=== PATIENT | female | born 1965 | race Caucasian/White ===

== ENCOUNTER 2017-09-16 19:35 | Observation (INO) | payer OTHER ==
[2017-09-16 20:03] LABS: #Basophils 0.1 thou/uL (0.0-0.2); #Eosinphils 0.2 thou/uL (0.0-0.7); #Lymphocytes 2.6 thou/uL (1.20-3.40); #Monocytes 0.5 thou/uL (0.11-0.59); #Neutrophils 4.2 thou/uL (1.40-6.50); %Basophils 1.3 % (0.0-1.0); %Eosinophils 2.2 % (0.0-10.0); %Monocytes 6.2 % (0.0-10.0); %Neutrophils 56.3 % (42.0-75.0); Hemoglobin 14.6 g/dL (12.0-16.0); Mean Corpuscular HGB CONC 32.6 g/dL (32.0-36.0); Mean Corpuscular Hemoglobin 28.9 pg (27.0-31.0); Mean Corpuscular Volume 88.8 fl (81.0-99.0); Mean Platelet Volume 10.3 fL (7.4-10.4); Platelet Count 276 thou/uL (130-400); RBC Distribution Width 11.9 % (11.5-14.5); Red Blood Cell (RBC) Count 5.06 mill/uL (4.20-5.40); White Blood Cell (WBC) Count 7.5 thou/uL (4.8-10.8)
[2017-09-16 20:15] LABS: ALT (SGPT) 28 U/L (8-55); AST (SGOT) 21 U/L (5-34); Albumin 4.6 g/dL (3.5-5.0); Alkaline Phosphatase 93 U/L (40-150); Anion Gap 15 mmol/L (10-20); BUN (Urea Nitrogen) 13 mg/dL (9.8-20.1); Bilirubin, Total 0.4 mg/dL (0.2-1.2); CK (CPK) 42 U/L (29-168); Calc. Creatinine Clearance 0 mL/min (70-130); Calcium 10.2 mg/dL (7.8-10.44); Carbon Dioxide 25 mmol/L (22-29); Chloride 104 mmol/L (98-107); Estimated GFR-MDRD 75; Globulin 3.2 g/dL (2.4-3.5); Glucose 167 mg/dL (70-105); Lipase 151 U/L (8-78); Potassium 4.2 mmol/L (3.5-5.1); Protein, Total 7.8 g/dL (6.0-8.3); Sodium 140 mmol/L (136-145)
[2017-09-16 20:18] LABS: CKMB 0.9 ng/mL (0-6.6); Troponin I Less than 0.010 ng/mL (< 0.028)
[2017-09-16] MEDS ORDERED: Nitroglycerin 2% Ointment 1 INCH/1 GM Packet ONE (20:24)
[2017-09-16] MEDS ORDERED: Aspirin 325 MG TAB ONE (20:24)
--- NOTE | 2017-09-16 20:32 | RAD ---
TWO VIEWS OF THE CHEST 09/16/17 COMPARISON: None. HISTORY: Shortness of breath for one week and chest pain for two days. FINDINGS: Two views of the chest show normal sized cardiomediastinal silhouette. There is no evidence of consol idation, mass, or pleural effusion. The bones are unremarkable. IMPRESSION: No evidence of acute cardiopulmonary disease. POS: [facility]
[2017-09-16] MEDS ORDERED: Nitroglycerin 2% Ointment 1 INCH/1 GM Packet TOP SCH (23:59)
[2017-09-17] MEDS ORDERED: Artificial Tears 18 DROP/0.9 ML EA EYE PRN (00:25)
[2017-09-17] MEDS ORDERED: Zolpidem Tartrate 5 MG TAB PO PRN (00:25)
[2017-09-17] MEDS ORDERED: Acetaminophen 325 MG TAB PO PRN (00:25)
[2017-09-17] MEDS ORDERED: Eucerin (Mineral Oil/Petrolatum,White) 30 gm Jar TOP PRN (00:25)
[2017-09-17] MEDS ORDERED: Loperamide HCl 2 MG CAP PO PRN (00:25)
[2017-09-17] MEDS ORDERED: Nitroglycerin 0.4 MG TAB (25 Tab Bottle) SL PRN (00:25)
[2017-09-17] MEDS ORDERED: Dextrose 5% in Water 1,000 ML IV PRN (00:25)
[2017-09-17] MEDS ORDERED: Ondansetron ODT 4 MG TAB PO PRN (00:25)
[2017-09-17] MEDS ORDERED: Senokot 8.6 MG TAB PO PRN (00:25)
[2017-09-17] MEDS ORDERED: Milk Of Magnesia 30 ML UDCUP PO PRN (00:25)
[2017-09-17] MEDS ORDERED: HYDROcodone/Acetaminophen 5/325 mg Tablet PO PRN (00:25)
[2017-09-17] MEDS ORDERED: HumaLOG 300 UNITS/3 ML VIAL SC PRN ×2 (00:25)
[2017-09-17] MEDS ORDERED: Dextrose 50% Abboject 50 ML SYRINGE SLOW IVP PRN (00:25)
[2017-09-17] MEDS ORDERED: Sodium Chloride 0.65% Nasal 44 ML BOT EA NARE PRN (00:25)
[2017-09-17] MEDS ORDERED: hydrALAZINE 20 MG/ML VIAL SLOW IVP PRN (00:25)
[2017-09-17] MEDS ORDERED: Mag-Al 1200 mg/1200 mg/30 ML UDCUP PO PRN (00:25)
[2017-09-17] MEDS ORDERED: Ondansetron HCl/PF 4 MG/2 ML Vial IVP PRN (00:25)
[2017-09-17] MEDS ORDERED: Diabetic Tussin 200 MG/10 ML UDCUP PO PRN (00:25)
[2017-09-17] MEDS ORDERED: Loratadine 10 MG TAB PO PRN (00:25)
[2017-09-17 01:39] LABS: Troponin I Less than 0.010 ng/mL (< 0.028)
[2017-09-17] MEDS: Nitroglycerin 2% Ointment 1 INCH/1 GM Packet TOP SCH ×2 (05:23→14:09)
[2017-09-17 06:18] LABS: Troponin I Less than 0.010 ng/mL (< 0.028)
[2017-09-17 06:21] LABS: Cardiac Risk 2.8 (Less than 4.5)
[2017-09-17] MEDS ORDERED: metFORMIN 500 MG TAB PO SCH (08:00)
[2017-09-17] MEDS ORDERED: Lisinopril 5 MG TAB PO SCH (09:00)
[2017-09-17] MEDS ORDERED: Escitalopram Oxalate 20 mg Tablet PO SCH (09:00)
[2017-09-17] MEDS ORDERED: Famotidine 20 MG TAB PO SCH (09:00)
[2017-09-17] MEDS ORDERED: Aspirin 325 mg Enteric Coated Tablet PO SCH (09:00)
[2017-09-17] MEDS ORDERED: Fluticasone Propionate Nasal Spray 16 gm Bottle NASAL SCH (09:00)
[2017-09-17] MEDS ORDERED: Estradiol 1 MG TAB PO SCH (09:00)
[2017-09-17] MEDS ORDERED: Aspirin 325 MG TAB PO SCH (09:00)
[2017-09-17] MEDS ORDERED: Lisdexamfetamine Dimesylate [Vyvanse] 30 MG PO SCH (09:00)
[2017-09-17] MEDS ORDERED: Azelastine 137 MCG/Spray 30 ML NS SCH (09:00)
[2017-09-17 12:32] VITALS: BP 114/59; TEMP 97.7
--- NOTE | 2017-09-17 14:04 | NM ---
MYOCARDIAL PERFUSION EVALUATION: INDICATION: History of chest pain. RADIOPHARMACEUTICAL: 31 mCi Technetium 99m sestamibi IV with stress and 11 mCi Technetium 99m sestamibi IV with rest. PHYSIOLOGIC DATA: The patient achieved 86% of the maximal age-predicted heart rate utilizing a nuclear treadmill stress test protocol. Please see the stress test report further details. FINDINGS: No reversible myocardial perfusion defect is evident. There was normal wall motion and thickening. The LVEF is estimated at 88%. IMPRESSION: Normal myocardial perfusion evaluation. POS: [facility]
--- NOTE | 2017-09-17 14:52 | HP ---
PRIMARY CARE PHYSICIAN: Mathew. REASON FOR ADMISSION: Chest pain. DATE OF SERVICE: 09/16/2017 HISTORY OF PRESENT ILLNESS: A 52-year-old female with past medical history of hypertension, dyslipidemia, diabetes type 2, who presented to emergency room with complaint of chest pain and shortness of breath for about 1 week. Patient reports that she was feeling exertional shortness of breath and for the last couple of days, she was having intermittent chest pain which was predominantly left-sided, 5/10 in intensity. She denies any associated cough. She was experienced flu about a month ago and since then, patient has some residual sinus congestion and drainage. Patient denies any fever or chills. She denies any pleuritic chest pain. She denies any associated nausea, vomiting, diaphoresis. For last 2 days, she was having more frequent chest discomfort, which has no relation with respiration, food, or activity. Patient was concerned about heart and that is why she decided to go to local emergency room at [facility]. Over there, patient had electrocardiogram, which was unremarkable. Patient also had routine blood tests including cardiac enzymes that were unremarkable. Patient never had any cardiac workup done in recent past and that is why patient was transferred to our hospital for rule out acute coronary syndrome. REVIEW OF SYSTEMS: Please see my HPI for pertinent positive and negative. All other review of systems reviewed and negative except as mentioned in the HPI: Constitutional: Weight loss or gain, ability to conduct usual activities. Skin : Rash, itching. Eyes: Double vision, pain. ENT/Mouth: Nose bleeding, neck stiffness, pain, tenderness. Cardiovascular: Palpitations, dyspnea on exertion , orthopnea. Respiratory: Shortness of breath, wheezing, cough, hemoptysis, fever, or night sweats. Gastrointestinal: Poor appetite, abdominal pain, heartburn, nausea, vomiting, constipation, or diarrhea. Genitourinary: Urgency , frequency, dysuria, nocturia. Musculoskeletal: Pain, swelling. Neurologic/ Psychiatric: Anxiety, depression. Allergy/Immunologic: Skin rash, bleeding tendency. PAST MEDICAL HISTORY: Diabetes type 2, hypertension, dyslipidemia. PAST SURGICAL HISTORY: Hysterectomy, x3, inguinal hernia repair. PAST PSYCHIATRIC HISTORY: Anxiety and depression. SOCIAL HISTORY: Patient is former smoker. She quit smoking few years ago. She denies any alcohol or other illicit drug abuse. FAMILY HISTORY: No strong family history of premature coronary artery disease, stroke, or cancer. ALLERGIES: No known drug allergy. CURRENT HOME MEDICATIONS: Lipitor 20 mg p.o. at bedtime, aspirin 81 mg p.o. daily, lisinopril 5 mg p.o. daily, Lexapro 20 mg p.o. daily, metformin 500 mg p.o. b.i.d., estradiol 0.5 mg p.o. daily. EMERGENCY ROOM COURSE: Patient is given nitro patch and aspirin 324 mg. PHYSICAL EXAMINATION: VITAL SIGNS: On arrival, blood pressure 145/65, pulse 86, respiratory rate 20, temperature 98.4, saturation 92% on room air, weight 65.7 kilograms. GENERAL: Patient is currently hypertensive, no acute distress. HEAD: Normocephalic, atraumatic. EYES: Pupils round, reactive to light. Extraocular muscle intact. ENT: Oropharynx within normal limits. Moist mucous membranes. No oral lesions , no pharyngeal erythema, no exudate. NECK: Supple, no JVD, no thyromegaly, no carotid bruit, no jugular venous distention. LUNGS: Clear to auscultation without any rhonchi or rales. CARDIAC: S1, S2 regular without any murmur. ABDOMEN: Soft, bowel sounds present, nontender, nondistended. No organomegaly , no mass, no suprapubic tenderness. BACK: Unremarkable, no CVA tenderness. EXTREMITIES: Upper extremity passive movement of all joints are normal. Lower extremities: No edema. Good peripheral pulsation, no calf tenderness. SKIN: No skin rash. HEMATOLOGICAL: No lymphadenopathy. PSYCHIATRIC: Normal affect. SIGNIFICANT LABORATORY DATA: EKG based on my review normal sinus rhythm, nonspecific ST-T changes. Chest x-ray based on my review, no acute cardiopulmonary process. CBC: WBC 7.5 , hemoglobin 14.6, platelet 276. D-dimer less than 0.27. BMP: Sodium 140, potassium 4.2, chloride 104, carbon dioxide 25, anion gap 15, BUN 13, creatinine 0.80, glucose 167, calcium 10.2. LFT: AST 21, ALT 28, alkaline phosphatase 93, albumin 4.6, lipase 151. Cardiac enzymes negative x2. ASSESSMENT AND PLAN: 1. Chest pain, rule out acute coronary syndrome, current chest pain description is atypical. Patient does have several risk factors for coronary artery disease including diabetes, hypertension, dyslipidemia. Her D-dimer is negative. Patient's clinical description is not consistent with any thromboembolic disorder. At this point, we will continue the nitropatch q.8 hourly. We will perform exercise Cardiolite stress test. Meanwhile, continue aspirin 325 mg p.o. daily, Lipitor 20 mg p.o. at bedtime. Check lipid profile for risk stratification. 2. Anxiety and depression. Continue Lexapro 20 mg p.o. daily. 3. Allergic rhinitis. Continue Flonase nasal spray as well as azelastine nasal spray as per home dosage. 4. Hypertension. Continue lisinopril 5 mg p.o. daily. 5. Diabetes, type 2. Continue metformin 500 mg p.o. daily and insulin as per sliding scale per protocol. Diabetic diet will be given. 6. Deep venous thrombosis prophylaxis not needed, because we are expecting discharge in 24 hours. 7. Gastrointestinal prophylaxis, Pepcid 20 mg p.o. b.i.d. 8. Code status: Patient is FULL CODE. Patient's is surrogate decision maker. Disposition plan based on stress test likely within 24 hours. Plan of care discussed with the patient and family member at bedside. MTDD
--- NOTE | 2017-09-17 14:56 | DIS ---
DATE OF ADMISSION: 09/16/2017 PRIMARY CARE PHYSICIAN: None. DISPOSITION: Discharged to home. FINAL DIAGNOSES: Noncardiac chest pain, diabetes mellitus type 2, hypertension, anxiety, and dyslipi demia. DISCHARGE MEDICATIONS: Same as home medications, metformin 500 mg a day, Zestril 5 mg a day, Vyvanse 30 mg daily, estradiol 0.5 mg daily, Lexapro 20 mg a day, atorvastatin 20 mg a day, aspirin 81 mg a day. ALLERGIES: None. CODE STATUS: FULL. PENDING AT THE TIME OF DISCHARGE: Nothing. DIET: Diabetic. CONSULTATIONS: None. PROCEDURES: None. HOSPITAL COURSE: The patient admitted with chest pain. There is unfortunately no H&P provided. The patient had chest pain, shortness of breath off and on for 2 weeks. EKG: Regular sinus rhythm, non specific ST changes. Chest x-ray unrevealing. LABORATORY: CBC normal. D-dimer less than 0.27. Comp metabolic profile normal except for blood sug ar 167. Cholesterol 127, LDL 58, HDL 45. Cardiac enzymes normal x3. Nuclear medicine stress test w as normal. The patient's vital signs are normal. She states she feels well today. Cardiorespirator y exam is normal. She is being discharged to follow up. She has been told she needs to obtain a PCP and see in 1 week if possible.
[2017-09-17] MEDS ORDERED: Atorvastatin Calcium 20 MG TAB PO SCH (21:00)
--- NOTE | 2017-09-19 10:56 | STRESS ---
Acquisition Time: 2017-09-17 09:53:19 Total Exercise Time: 00:06:00 Test Indications: CHEST PAIN Medications: Protocol: KARUNA Max HR: 146 BPM 86% of Pred: 168 BPM Max BP: 182/098 mmHG Max Work Load: 7.0 METS THE PATIENT EXERCISED FOR 6:00 ON A KARUNA PROTOCOL. PEAK HEART RATE= 146 BPM AND TARGET HEART RATE= 143 BPM. SHE DID DEVELOP CHEST PAIN. THERE WAS NO SIGNIFICANT ST DEPRESSION. NORMAL EXERCISE TREADMILL TEST BY ECG CRITERIA. AWAIT NUCLEAR IMAGES FOR DEFINITIVE DIAGNOSIS. Confirmed by YUVAL ROSA ([id number]), associate editor CURTIS JACKSON ([id number]) on 09/19/2017 10:55:33 AM Referred By: MD Lola POSADAS Confirmed By:YUVAL ROSA
--- NOTE | 2017-09-23 15:56 | EKG ---
Test Reason : Blood Pressure : / mmHG Vent. Rate : 087 BPM Atrial Rate : 087 BPM P-R Int : 136 ms QRS Dur : 064 ms QT Int : 358 ms P-R-T Axes : 032 -12 046 degrees QTc Int : 430 ms Normal sinus rhythm Septal infarct , age undetermined Left axis deviation Nonspecific ST abnormality Abnormal ECG Confirmed by ALEXANDRO KAPLAN, AISSATOU ([id number]), science editor JOE THOMAS ([id number]) on 09/23/2017 3:55:59 PM Referred By: Confirmed By:AISSATOU MC MD
--- NOTE | 2017-09-23 15:57 | EKG ---
Test Reason : Blood Pressure : / mmHG Vent. Rate : 071 BPM Atrial Rate : 071 BPM P-R Int : 148 ms QRS Dur : 062 ms QT Int : 392 ms P-R-T Axes : 016 -21 037 degrees QTc Int : 425 ms Normal sinus rhythm Possible Anterior infarct , age undetermined Abnormal ECG Similar to 1st EKG Confirmed by ALEXANDRO KAPLAN, AISSATOU ([id number]), technical editor JOE THOMAS ([id number]) on 09/23/2017 3:56:41 PM Referred By: Confirmed By:AISSATOU MC MD
== END 2017-09-17 15:31 | disposition home or self-care (01) ==
LOC: SCSER 19:35 → 2SW 23:17
PROVIDERS: ADMIT Internal Medicine; ATTEND Internal Medicine
DX: R07.89 Other chest pain (principal); E11.9 Type 2 diabetes mellitus without complications; I10 Essential (primary) hypertension; F41.9 Anxiety disorder, unspecified; E78.5 Hyperlipidemia, unspecified; F32.9 Major depressive disorder, single episode, unspecified; J30.9 Allergic rhinitis, unspecified; Z79.84 Long term (current) use of oral hypoglycemic drugs; Z79.51 Long term (current) use of inhaled steroids; Z79.82 Long term (current) use of aspirin; Z79.890 Hormone replacement therapy; Z79.899 Other long term (current) drug therapy; Z90.710 Acquired absence of both cervix and uterus; Z98.890 Other specified postprocedural states; Z98.891 History of uterine scar from previous surgery; Z87.891 Personal history of nicotine dependence
CPT/HCPCS: 36415; 36416; 71046; 78452; 80053; 80061; 82550; 82553; 83690; 84484; 85025; 85379; 93005; 93017; A9500; G0378